=== PATIENT | male | born 1965 | race Caucasian/White ===

== ENCOUNTER 2016-07-15 10:39 | Emergency (ER) | payer SELFPAY ==
[~2016-07-15] VITALS: Ht 162.6 cm; Wt 54.4 kg
[2016-07-15 10:47] VITALS: BP 128/67
== END 2016-07-15 11:05 | disposition home or self-care (01) ==
LOC: ER 10:42
DX: Z53.21 Procedure and treatment not carried out due to patient leaving prior to being seen by health care provider (principal)
CPT/HCPCS: A4606; Z7610